=== PATIENT | female | born 1940 | race Caucasian/White ===

== ENCOUNTER → 2017-02-08 | Outpatient (CLI) | payer MEDICARE, BC ==
--- NOTE | 2017-02-08 15:15 | Diagnostic Imaging Report ---
Indication: Cough Technique: Two views of the chest Comparison: none Findings: Lungs and pleural spaces are clear. Heart size is normal. Aorta is tortuous. There are mild degenerative changes of the upper thoracic spine Impression: No acute process
== END | disposition home or self-care (01) ==
LOC: RAD 14:03
DX: Z01.818 Encounter for other preprocedural examination (principal); R05 Cough
CPT/HCPCS: 71020